=== PATIENT | male | born 1965 ===

== ENCOUNTER 2023-12-29 04:45 | Day surgery (SDC) | payer OTHER ==
[2023-12-25 14:32] VITALS: BMI 24.2
[2023-12-29 10:20] LABS: CALCIUM 9.1 mg/dL (8.5-10.1)
[2023-12-29 10:21] LABS: BLOOD UREA NITROGEN 23.4 mg/dL (7-18)
[2023-12-29 10:22] LABS: POTASSIUM 4.1 mmol/L (3.5-5.1)
[2023-12-29 10:24] LABS: CREATININE 0.9 mg/dL (0.55-1.3)
[2023-12-29] MEDS ORDERED: ceFAZolin SODIUM 1 GM VIAL IVPB ONE (11:22)
[2023-12-29] MEDS ORDERED: ROCURONIUM BROMIDE 50 MG/5 ML SYRINGE ONE (11:26)
[2023-12-29] MEDS ORDERED: PROPOFOL 20 ML ONE (11:26)
[2023-12-29] MEDS ORDERED: LIDOCAINE 1%/EPI 1:100000 (50 ML MULTI DOSE VIAL) NR ONE (11:31)
[2023-12-29] MEDS ORDERED: ONDANSETRON 4 MG/2 ML VIAL IVPUSH PRN (11:45)
[2023-12-29] MEDS ORDERED: LACTATED RINGERS SOLUTION 1,000 ML IV SCH (11:45)
[2023-12-29 14:10] VITALS: BP 121/71; PULSE 86; RESP 16; TEMP 97.5
== END 2023-12-29 14:20 | disposition home or self-care (01) ==
LOC: JASU-SURG 04:45
PROVIDERS: ATTEND Urology
PROC: 0H57XZZ Destruction of Abdomen Skin, External Approach (ICD-10-PCS; 2023-12-29)
PROC: 0JB80ZZ Excision of Abdomen Subcutaneous Tissue and Fascia, Open Approach (ICD-10-PCS; principal; 2023-12-29 11:30)
DX: L92.9 Granulomatous disorder of the skin and subcutaneous tissue, unspecified (principal)
CPT/HCPCS: 36415; 80048; 82962; 88304-TC; 94760